=== PATIENT | female | born 1965 | race Caucasian/White ===

== ENCOUNTER 2017-09-05 18:44 | Emergency (ER) | payer BC, MEDICAID ==
[~2017-09-05] VITALS: Ht 167.6 cm; Wt 106.2 kg
[~2017-09-05 18:44] MED LIST: DEXL30CA3 PO; DIAZ5TAB PO; HYDR-3972 PO; HYDR-569 PO; IBUP-1986 PO; LIPA1CAP8 PO; MULT-1085 PO; NITR100C PO; ONDA4TAB9 SL; RES15C PO; SUCR1ORA2 PO; TRAM50TA2 PO; TRIA1TAB3 PO
[2017-09-05] MEDS ORDERED: dexamethasone 4mg tablet PO STA (21:44)
[2017-09-05] MEDS ORDERED: diphenhydrAMINE 50 mg/ml inj IM ONE (21:45)
[2017-09-05] MEDS ORDERED: HYDROmorphone 2mg tablet PO PRN (21:45)
[2017-09-05] MEDS ORDERED: metoclopramide 5 mg/ml inj IM ONE (21:45)
[2017-09-05] MEDS ORDERED: dexamethasone sod phosphate 10mg/ml inj PO STA (21:51)
[2017-09-05 22:59] VITALS: BP 145/75
== END 2017-09-05 23:05 | disposition home or self-care (01) ==
LOC: ER 18:45
DX: R51 Headache (principal); M54.40 Lumbago with sciatica, unspecified side; K21.9 Gastro-esophageal reflux disease without esophagitis; F32.9 Major depressive disorder, single episode, unspecified; G89.29 Other chronic pain; Z90.710 Acquired absence of both cervix and uterus; B19.20 Unspecified viral hepatitis C without hepatic coma
CPT/HCPCS: 96372; 99284; J1200; J2765; J8540; 78730; 78740

== ENCOUNTER 2019-11-26 10:37 | Emergency (ER) | payer MEDICAID, OTHER ==
[~2019-11-26] VITALS: Ht 165.1 cm; Wt 89.4 kg
[~2019-11-26 10:37] MED LIST changes: +COR3.125T PO; -DEXL30CA3 PO; -DIAZ5TAB PO; +FURO40TA4 PO; -HYDR-3972 PO; +HYDR-4383 PO; -HYDR-569 PO; -IBUP-1986 PO; -LIPA1CAP8 PO; +LISI-642 PO; -NITR100C PO; +POTA20TA19 PO; -SUCR1ORA2 PO; -TRAM50TA2 PO; -TRIA1TAB3 PO
[2019-11-26 11:13] LABS: CLARITY,URINE CLEAR (Clear); COLOR,URINE STRAW (Yellow); GLUCOSE, URINE NEGATIVE (Neg); KETONES,URINE NEGATIVE (Neg); LEUKOCYTE ESTERASE ,URINE NEGATIVE (Neg); NITRITES, URINE NEGATIVE (Neg); OCCULT BLOOD,URINE NEGATIVE (Neg); PROTEIN,URINE NEGATIVE (Neg); UROBILINOGEN,URINE 0.2 E.U/dL (0.2-1.0)
[2019-11-26 11:15] LABS: UA COLLECTION TYPE CLN CATCH MIDSTREAM
[2019-11-26 11:21] LABS: BASOPHILS # (AUTO) 0.1 X10'3 (0-0.2); EOSINOPHILS # (AUTO) 0.2 X10'3 (0-0.9); HEMATOCRIT 39.5 % (35.0-45.0); HEMOGLOBIN 13.8 g/dl (12.0-16.0); LYMPHOCYTES # (AUTO) 1.5 X10'3 (1.1-4.8); LYMPHOCYTES % (AUTO) 28.2 % (21-51); MEAN CORPUSCULAR HEMOGLOBIN 28.7 PG (27.0-31.0); MEAN CORPUSCULAR HGB CONC 34.9 g/dL (33.0-36.5); MEAN CORPUSCULAR VOLUME 82.2 FL (78-98); MEAN PLATELET VOLUME 7.9 FL (7.4-10.4); MONOCYTES # (AUTO) 0.4 X10'3 (0-0.9); MONOCYTES % (AUTO) 6.8 % (2-12); NEUTROPHILS # (AUTO) 3.1 X10'3 (1.8-7.7); PLATELET COUNT 221 X10'3 (140-440); RED BLOOD COUNT 4.81 X10'6 (4.20-5.60); RED CELL DISTRIBUTION WIDTH 13.6 % (11.5-14.5); WHITE BLOOD COUNT 5.2 X10'3 (4.5-11.0)
[2019-11-26 11:36] LABS: PARTIAL THROMBOPLASTIN TIME 26 SECONDS (22-32)
[2019-11-26 11:37] LABS: ALANINE AMINOTRANSFERASE 21 U/L (12-78); ALBUMIN 3.6 G/DL (3.4-5.0); ALBUMIN/GLOBULIN RATIO 0.9 (1.1-1.5); ALKALINE PHOSPHATASE 61 IU/L (46-116); ANION GAP 2 (8-16); ASPARTATE AMINO TRANSFERASE 20 U/L (10-37); BILIRUBIN,TOTAL 0.5 MG/DL (0.1-1.0); BLOOD UREA NITROGEN 18 MG/DL (7-18); BUN/CREATININE RATIO 17.8 (6.6-38.0); CALCIUM 9.5 MG/DL (8.5-10.1); CHLORIDE 104 MMOL/L (99-107); CREATININE 1.01 MG/DL (0.40-0.90); GLUCOSE 148 MG/DL (70-104); POTASSIUM 4.2 MMOL/L (3.5-5.1); SODIUM 143 MMOL/L (135-145); TOTAL CARBON DIOXIDE 36.9 MMOL/L (24-32); TOTAL PROTEIN 7.6 G/DL (6.4-8.2); eGFR 57 ML/MIN
[2019-11-26] MEDS ORDERED: ketorolac tromethamine 15mg/ml inj. IV ONE (12:30)
[2019-11-26] MEDS ORDERED: morphine 4 MG/ML inj SYRINge IV ONE (12:30)
[2019-11-26] MEDS ORDERED: PANT-47 PO (13:17)
[2019-11-26 14:22] VITALS: BP 111/81
== END 2019-11-26 14:24 | disposition home or self-care (01) ==
LOC: ER 10:38
DX: R07.81 Pleurodynia (principal); R10.13 Epigastric pain; I25.10 Atherosclerotic heart disease of native coronary artery without angina pectoris; I50.9 Heart failure, unspecified; I25.2 Old myocardial infarction; K21.9 Gastro-esophageal reflux disease without esophagitis; F15.90 Other stimulant use, unspecified, uncomplicated; F32.9 Major depressive disorder, single episode, unspecified; G89.29 Other chronic pain; Z86.19 Personal history of other infectious and parasitic diseases; Z90.710 Acquired absence of both cervix and uterus; Z98.890 Other specified postprocedural states; Z87.891 Personal history of nicotine dependence; Z72.89 Other problems related to lifestyle; Z88.5 Allergy status to narcotic agent; Z88.8 Allergy status to other drugs, medicaments and biological substances; Z79.899 Other long term (current) drug therapy
CPT/HCPCS: 36415; 71045; 80053; 81003; 83690; 84484; 85025; 85610; 85730; 93005; 96374; 96375; 99285; J1885; J2270

== ENCOUNTER 2021-07-31 18:12 | Emergency (ER) | payer MEDICAID ==
[~2021-07-31] VITALS: Ht 167.6 cm; Wt 105.0 kg
[~2021-07-31 18:12] MED LIST changes: +PANT-47 PO; -POTA20TA19 PO
[2021-07-31] MEDS ORDERED: LIDOcaine 1% 30ml preserv. free vial IJ ONE (21:25)
[2021-07-31 21:55] LABS: BASOPHILS # (AUTO) 0.1 X10'3 (0-0.2); BASOPHILS % (AUTO) 0.6 % (0-1); EOSINOPHILS # (AUTO) 0.2 X10'3 (0-0.9); EOSINOPHILS % (AUTO) 1.9 % (0-6); HEMATOCRIT 38.2 % (35.0-45.0); HEMOGLOBIN 13.2 g/dl (12.0-16.0); LYMPHOCYTES # (AUTO) 1.9 X10'3 (1.1-4.8); MEAN CORPUSCULAR HEMOGLOBIN 28.8 PG (27.0-31.0); MEAN CORPUSCULAR HGB CONC 34.5 g/dL (33.0-36.5); MEAN CORPUSCULAR VOLUME 83.5 FL (78-98); MEAN PLATELET VOLUME 8.2 FL (7.4-10.4); MONOCYTES # (AUTO) 0.8 X10'3 (0-0.9); MONOCYTES % (AUTO) 8.9 % (2-12); NEUTROPHILS # (AUTO) 6.2 X10'3 (1.8-7.7); NEUTROPHILS % (AUTO) 67.6 % (42-75); PLATELET COUNT 257 X10'3 (140-440); RED BLOOD COUNT 4.58 X10'6 (4.20-5.60); RED CELL DISTRIBUTION WIDTH 13.3 % (11.5-14.5); WHITE BLOOD COUNT 9.2 X10'3 (4.5-11.0)
[2021-07-31 22:00] LABS: ALBUMIN 3.7 G/DL (3.4-5.0); ANION GAP 8 (8-16); BLOOD UREA NITROGEN 12 MG/DL (7-18); BUN/CREATININE RATIO 13.2 (6.6-38.0); C-REACTIVE PROTEIN 0.98 MG/DL (0.0-0.5); CHLORIDE 100 MMOL/L (99-107); CREATININE 0.91 MG/DL (0.40-0.90); GLUCOSE 165 MG/DL (70-104); POTASSIUM 3.6 MMOL/L (3.5-5.1); SODIUM 137 MMOL/L (135-145); TOTAL CARBON DIOXIDE 28.8 MMOL/L (24-32); eGFR 64 ML/MIN
[2021-07-31] MEDS ORDERED: NAPR-56 PO (22:54)
[2021-07-31 23:33] LABS: APPEARANCE,SYNOVIAL FLUID CLOUDY; COLOR,SYNOVIAL FLUID YELLOW; SYN WBC 11350 /CU MM (0-200)
[2021-07-31 23:34] LABS: LYMPHOCYTES,SYNOVIAL FLUID 10 % (0-75); MONOCYTES,SYNOVIAL FLUID 4 % (0-0); NEUTROPHILS,SYNOVIAL FLUID 86 % (0-25); SYN RBC 100 /CU MM (0); SYNOVIAL FLUID CRYSTALS QT NO CRYSTALS SEEN
[2021-08-01 01:31] VITALS: BP 193/88
== END 2021-08-01 01:32 | disposition home or self-care (01) ==
LOC: ER 18:13
DX: M71.22 Synovial cyst of popliteal space [Baker], left knee (principal); M25.562 Pain in left knee; I25.10 Atherosclerotic heart disease of native coronary artery without angina pectoris; I50.9 Heart failure, unspecified; I25.2 Old myocardial infarction; K21.9 Gastro-esophageal reflux disease without esophagitis; G89.29 Other chronic pain; F32.9 Major depressive disorder, single episode, unspecified; F15.90 Other stimulant use, unspecified, uncomplicated; Z86.19 Personal history of other infectious and parasitic diseases; Z87.440 Personal history of urinary (tract) infections; Z72.89 Other problems related to lifestyle; Z90.710 Acquired absence of both cervix and uterus; Z98.890 Other specified postprocedural states; Z88.5 Allergy status to narcotic agent; Z88.8 Allergy status to other drugs, medicaments and biological substances; Z79.899 Other long term (current) drug therapy
CPT/HCPCS: 20610; 36415; 73560; 80048; 85025; 86140; 87070; 89051; 89060; 93971; 99285

== ENCOUNTER 2022-06-09 19:46 | Emergency (ER) | payer MEDICAID ==
[~2022-06-09] VITALS: Ht 165.1 cm; Wt 93.0 kg
[2022-06-09 19:53] VITALS: BP 162/102
[2022-06-09] MEDS ORDERED: SULF1TAB49 PO (21:00)
[2022-06-09] MEDS ORDERED: bacitracin 15gm ointment TP ONE (21:05)
== END 2022-06-09 21:59 | disposition home or self-care (01) ==
LOC: ER 19:46
DX: M79.601 Pain in right arm (principal); I11.9 Hypertensive heart disease without heart failure; K21.9 Gastro-esophageal reflux disease without esophagitis; F32.9 Major depressive disorder, single episode, unspecified; F15.10 Other stimulant abuse, uncomplicated; Z88.8 Allergy status to other drugs, medicaments and biological substances; Z88.5 Allergy status to narcotic agent; Z79.899 Other long term (current) drug therapy
CPT/HCPCS: 99282